=== PATIENT | female | born 1990 | race Hispanic/Latino ===

== ENCOUNTER 2017-11-16 16:08 | Emergency (ER) | payer OTHER ==
[2017-11-16 16:45] VITALS: O2SAT 99
[2017-11-16 19:25] LABS: BASO % 0.3 % (0.0-2.0); EOS # 0.1 K/uL (0.0-0.7); EOS % 1.8 % (0.0-4.0); HEMOGLOBIN 13.2 g/dL (12.0-16.0); LYMPH # 1.7 K/uL (1.0-4.3); LYMPH % 22.6 % (20.0-40.0); MEAN CELL VOLUME 80.6 fl (81.0-99.0); MEAN CORPUSCULAR HEMOGLOBIN 26.3 pg (27.0-31.0); MEAN CORPUSCULAR HGB CONC 32.6 g/dL (33.0-37.0); MEAN PLATELET VOLUME 9.9 fl (7.2-11.7); MONO # 0.7 K/uL (0.0-0.8); MONO % 9.6 % (0.0-10.0); NEUT # 5.1 K/uL (1.8-7.0); NEUT % 65.7 % (50.0-75.0); NRBC % 0.2 % (0.0-0.0); RED CELL DISTRIBUTION WIDTH 14.3 % (11.5-14.5); WHITE BLOOD COUNT 7.7 K/uL (4.8-10.8)
[2017-11-16 19:40] LABS: ALB/GLOB RATIO 1.4 (1.0-2.1); ALBUMIN 4.2 g/dL (3.5-5.0); ALT/SGPT 39 U/L (9-52); AST/SGOT 18 U/L (14-36); BLOOD UREA NITROGEN 9 mg/dl (7-17); CALCIUM 9.4 mg/dL (8.4-10.2); GFR AFRICAN-AMERICAN > 60; GFR NON-AFRICAN AMERICAN > 60; LIPASE 61 U/L (23-300)
--- NOTE | 2017-11-16 20:04 | ED PDOC ---
HPI: Abdomen Time Seen by Provider: 11/16/17 16:50 Chief Complaint (Nursing): Abdominal Pain Past Medical History Vital Signs: Last Vital Signs Temp 98.3 F 11/16/17 16:42 Pulse 80 11/16/17 16:42 Resp 20 11/16/17 16:42 BP 127/83 11/16/17 16:42 Pulse Ox 99 11/16/17 16:42 - Medical History PMH: Asthma - Home Medications Home Medications: Ambulatory Orders Medication Instructions Recorded Azithromycin [Zithromax Z-Allen] 250 mg PO DAILY #1 packet 01/28/16 Fluticasone Nasal [Flonase] 1 spray NS DAILY #0 spr 01/28/16 Ibuprofen [Motrin] 600 mg PO Q6 PRN #15 tab 01/28/16 Famotidine [Pepcid] 20 mg PO BID #28 tab 11/16/17 - Allergies Allergies/Adverse Reactions: Allergies Allergy/AdvReac Type Severity Reaction Status Date / Time No Known Allergies Allergy Verified 11/30/14 11:12 - Laboratory Results Result Diagrams: 11/16/17 19:19 11/16/17 19:19 - ECG O2 Sat by Pulse Oximetry: 99 Disposition - Clinical Impression Clinical Impression: Gastritis - Patient ED Disposition Is Patient to be Admitted: No Counseled Patient/Family Regarding: Diagnosis, Need For Followup, Rx Given - Disposition Disposition: Routine/Home Disposition Time: 20:04 Condition: GOOD Prescriptions: Famotidine [Pepcid] 20 mg PO BID #28 tab Instructions: Gastritis (ED)
[2017-11-16 20:52] VITALS: BP 120/80; PULSE 81; RESP 17; TEMP 98.2
== END 2017-11-16 20:35 | disposition home or self-care (01) ==
LOC: H.ER 16:08
DX: K29.70 Gastritis, unspecified, without bleeding (principal); J45.909 Unspecified asthma, uncomplicated

== ENCOUNTER 2018-07-10 15:05 | Emergency (ER) | payer OTHER ==
[2018-07-10 15:21] VITALS: BP 133/74; PULSE 80; RESP 18; TEMP 98.7; O2SAT 100
[2018-07-10] MEDS ORDERED: Sodium Chloride 0.9% 1,000 ML IV STA (15:45)
[2018-07-10 16:12] LABS: BASO # 0.1 K/uL (0.0-0.2); BASO % 0.6 % (0.0-2.0); EOS # 0.1 K/uL (0.0-0.7); EOS % 0.6 % (0.0-4.0); HEMOGLOBIN 13.7 g/dL (12.0-16.0); LYMPH % 20.7 % (20.0-40.0); MEAN CELL VOLUME 79.1 fl (81.0-99.0); MEAN CORPUSCULAR HGB CONC 34.1 g/dL (33.0-37.0); MEAN PLATELET VOLUME 9.7 fl (7.2-11.7); MONO # 0.5 K/uL (0.0-0.8); MONO % 5.5 % (0.0-10.0); NEUT # 7.1 K/uL (1.8-7.0); NEUT % 72.6 % (50.0-75.0); NRBC % 0.1 % (0.0-0.0); RBC 5.08 Mil/uL (3.80-5.20); RED CELL DISTRIBUTION WIDTH 14.1 % (11.5-14.5); WHITE BLOOD COUNT 9.7 K/uL (4.8-10.8)
--- NOTE | 2018-07-10 16:21 | ED PDOC ---
HPI: Hypertension/Hypotension Time Seen by Provider: 07/10/18 15:25 Chief Complaint (Nursing): Palpitations Chief Complaint (Provider): palpitations History Per: Patient History/Exam Limitations: no limitations Onset/Duration Of Symptoms: Days (x2 weeks), Intermittent Episodes Current Symptoms Are (Timing): Still Present Associated Symptoms: Dizziness (nonvertiginous), Other (lightheadedness) Additional Complaint(s): Saray Diggs is a 28 year old female, with a past medical history of asthma and thyroid problems, who present to the emergency department complaining of intermittent palpitations onset for the last x2 weeks. Patient states they are becoming more frequent and associated with lightheadedness, nonvertiginous dizziness and occasional shortness of breath. Today she happened to have a breast ultrasound for nodules and during the test she felt very lightheaded and palpitations seemed to be worst. She denies any chest pain, leg swelling or recent changes in diet. She does report that earlier this month she had her first depo shot but denies any vaginal bleeding. No further medical complaints. PMD: Dr. Chase in [place]. Past Medical History Reviewed: Historical Data, Nursing Documentation, Vital Signs Vital Signs: Last Vital Signs Temp 98.7 F 07/10/18 15:17 Pulse 80 07/10/18 15:17 Resp 18 07/10/18 15:17 BP 133/74 07/10/18 15:17 Pulse Ox 100 07/10/18 15:17 - Medical History PMH: Asthma, Gastritis - Surgical History Surgical History: No Surg Hx - Family History Family History: States: Hypertension - Social History Current smoker - smoking cessation education provided: No Alcohol: Occasional (last drink on October) Drugs: Denies - Home Medications Home Medications: Ambulatory Orders Medication Instructions Recorded Azithromycin [Zithromax Z-Allen] 250 mg PO DAILY #1 packet 01/28/16 Fluticasone Nasal [Flonase] 1 spray NS DAILY #0 spr 01/28/16 Ibuprofen [Motrin] 600 mg PO Q6 PRN #15 tab 01/28/16 Famotidine [Pepcid] 20 mg PO BID #28 tab 11/16/17 - Allergies Allergies/Adverse Reactions: Allergies Allergy/AdvReac Type Severity Reaction Status Date / Time No Known Allergies Allergy Verified 07/10/18 15:17 Review of Systems ROS Statement: Except As Marked, All Systems Reviewed And Found Negative Cardiovascular: Positive for: Palpitations, Light Headedness. Negative for: Chest Pain, Edema Respiratory: Positive for: Shortness of Breath (occasional) Genitourinary Female: Negative for: Vaginal Bleeding Neurological: Positive for: Dizziness Physical Exam - Reviewed Nursing Documentation Reviewed: Yes Vital Signs Reviewed: Yes - Physical Exam Appears: Positive for: Well, No Acute Distress Head Exam: Positive for: ATRAUMATIC, NORMAL INSPECTION, NORMOCEPHALIC Skin: Positive for: Normal Color, Warm, Dry Eye Exam: Positive for: Normal appearance, EOMI, PERRL Neck: Positive for: Painless ROM Cardiovascular/Chest: Positive for: Regular Rate, Rhythm (with occasional PVCs) . Negative for: Edema, Murmur Respiratory: Positive for: Normal Breath Sounds. Negative for: Respiratory Distress Gastrointestinal/Abdominal: Positive for: Soft. Negative for: Tenderness Extremity: Positive for: Normal ROM. Negative for: Calf Tenderness Lymphatic: Negative for: Adenopathy Neurologic/Psych: Positive for: Alert, Oriented. Negative for: Motor/Sensory Deficits - Laboratory Results Result Diagrams: 07/10/18 16:08 07/10/18 16:08 - ECG ECG: Positive for: Interpreted By Me ECG Rhythm: Positive for: Normal QRS, Normal ST Segment, Sinus Rhythm (with PVCs ) O2 Sat by Pulse Oximetry: 100 (RA) Pulse Ox Interpretation: Normal Medical Decision Making Medical Decision Making: Time: 15:25 Initial Impression: Palpitations with frequent PVCs. Differential includes but not limited to electrolyte abnormalities, thyroid dysfunction, anemia, arrhythmia, PE or CHF Initial Plan: --EKG --B-Type Natriuretic Peptide --CMP --Free T4 --Magnesium --Phosphorus --T3 --TSH --Troponin I --Urine --Urine dipstick --CBC w/ differential --D Dimer --PTT --PT --Chest two views (PA/LAT) [RAD] --Sodium Chloride 1,000 ml IV 100 mls/hr --Reevaluation Labs unremarkable. Accession No. : [id number] Patient Name / ID : CHAZ PEREZ / [id number] Exam Date : 07/10/2018 16:15:06 ( Approved ) Study Comment : Sex / Age : F / 28Y Creator : Tashi Kelley MD Dictator : Tashi Kelley MD Physical Design Engineer : Cotton Machine Operator : Tashi Kelley MD Approver2 : Report Date : 07/10/2018 17:07:10 My Comment : Date of service: 07/10/2018 HISTORY: cp COMPARISON: Chest radiograph dated 01/28/2016 TECHNIQUE: Chest PA and lateral FINDINGS: LUNGS: No active pulmonary disease. PLEURA: No significant pleural effusion identified. No pneumothorax apparent. CARDIOVASCULAR: Normal. OSSEOUS STRUCTURES: No significant abnormalities. VISUALIZED UPPER ABDOMEN: Normal. OTHER FINDINGS: None. IMPRESSION: No active disease. ----- Scribe Attestation: Documented by Norberto Castro, acting as a scribe for Bobbi Otero MD. Provider Scribe Attestation: All medical record entries made by the Scribe were at my direction and personally dictated by me. I have reviewed the chart and agree that the record accurately reflects my personal performance of the history, physical exam, medical decision making, and the department course for this patient. I have also personally directed, reviewed, and agree with the discharge instructions and disposition. Disposition - Clinical Impression Clinical Impression: Palpitations Counseled Patient/Family Regarding: Studies Performed, Diagnosis, Need For Followup - Disposition Referrals: [facility] [place] [Outside] ([facility] SO YOU CAN GET A REFERRAL TO THE CARDIOLOGY CLINIC) Disposition: Routine/Home Disposition Time: 17:00 Condition: STABLE Additional Instructions: ALWAYS STAY WELL HYDRATED AVOID ANY STIMULANTS: COFFEE, TEA, COLD MEDICATIONS. FOLLOW UP AT CARDIOLOGY CLINIC (YOU HAVE TO VISIT [facility] FIRST.) Instructions: Ventricular Premature Beats Forms: [facility] ED School/Work Excuse Print Language: KENYAN
[2018-07-10 16:23] LABS: INR 1.2; PROTHROMBIN TIME 13.1 Seconds (9.8-13.1)
[2018-07-10 16:26] LABS: ALB/GLOB RATIO 1.6 (1.0-2.1); ALBUMIN 4.5 g/dL (3.5-5.0); ALT/SGPT 23 U/L (9-52); AST/SGOT 17 U/L (14-36); BLOOD UREA NITROGEN 7 mg/dl (7-17); CALCIUM 9.7 mg/dL (8.4-10.2); D DIMER < 200 ng/mlDDU (0-230); GFR NON-AFRICAN AMERICAN > 60
[2018-07-10 16:39] LABS: B-TYPE NATRIURETIC PEPTIDE 84.4 pg/ml (0-450)
[2018-07-10 16:53] LABS: SQUAMOUS EPITHIAL 5 /hpf (0-5); URINE BACTERIA RARE (<OCC); URINE BILIRUBIN NEGATIVE (NEGATIVE); URINE BLOOD NEGATIVE (NEGATIVE); URINE CLARITY SLIGHTY-CLOUDY (Clear); URINE COLOR YELLOW (YELLOW); URINE GLUCOSE (UA) NEG (Normal); URINE LEUKOCYTE ESTERASE MOD Leu/uL (Negative); URINE PROTEIN NEGATIVE (NEGATIVE); URINE UROBILINOGEN 0.2-1.0 mg/dL (0.2-1.0)
[2018-07-10 16:57] LABS: T3 1.19 nmol/L (1.49-2.60)
--- NOTE | 2018-07-10 17:09 | RAD ---
Date of service: 07/10/2018 HISTORY: cp COMPARISON: Chest radiograph dated 01/28/2016 TECHNIQUE: Chest PA and lateral FINDINGS: LUNGS: No active pulmonary disease. PLEURA: No significant pleural effusion identified. No pneumothorax apparent. CARDIOVASCULAR: Normal. OSSEOUS STRUCTURES: No significant abnormalities. VISUALIZED UPPER ABDOMEN: Normal. OTHER FINDINGS: None. IMPRESSION: No active disease.
[2018-07-10 17:21] LABS: PARTIAL THROMBOPLASTIN TIME 33.8 Seconds (25.6-37.1)
--- NOTE | 2018-07-11 08:50 | CARD ---
APPROVED REPORT Date of service: 07/10/2018 <Conclusion> Sinus rhythm with premature supraventricular complexes and premature ventricular complexes or fusion complexes Otherwise normal ECG
== END 2018-07-10 18:25 | disposition home or self-care (01) ==
LOC: H.ER 15:05
DX: R00.2 Palpitations (principal); I10 Essential (primary) hypertension; J45.909 Unspecified asthma, uncomplicated
CPT/HCPCS: 71046; 80053; 81003; 81025; 83735; 83880; 84100; 84439; 84443; 84480; 84484; 85025; 85378; 85610; 85730; 87086; 93005; 99284; J7030